=== PATIENT | male | born 1945 | race Caucasian/White ===

== ENCOUNTER → 2020-02-07 | Outpatient (CLI) | payer MEDICARE ==
--- NOTE | 2020-02-07 12:09 | EXE ---
[place] [address] STRESS ECHOCARDIOGRAM Name: JACOB JIMENEZ Room: [facility]#: [id number] Admission: 02/07/20 Attend Phys: Vasiliy Saleh, Discharge: Date of : 49 Date of Service: 02/07/20 1208 Report #: [id number] THIS REPORT FOR: cc: Eduardo Del Valle Bradley Dean DO Blick, David R. MD [facility] ~ APPROVED REPORT Study performed: 02/07/2020 11:12:53 Exam: Stress Echocardiogram Indication: Dyspnea Patient Location: Out-Patient Stress Nurse: Chloé Nicole RN Supervising Physician: Travis Luna MD Status: routine Ht: 5 ft 11 in HR: 75 bpm BP: 115/73 mmHg Rhythm: NSR Medical History Medications: Metoprolol, Rosuvastatin, asa, telmisartan, hlorthalidone Allergies: No known drug allergies Cardiac Risk Factors: Hyperlipidemia, HTN, FHX of CAD, Tobacco History (Former) Procedure The patient underwent an Exercise Stress Test using the Jurgen Protocol. Blood pressure, heart rate, and EKG were monitored. An Echocardiogram was performed by nitriles lab technician in four stages in quad fashion. At peak stress, four selected images were obtained and placed side by side with resting images for comparison. Stress Test Details Stress Test: Exercise stress testing was performed using a Jurgen protocol. HR Resting HR: 75 bpm Max Heart Rate (APMHR): 148 bpm Max HR Achieved: 136 bpm Target HR (85% APMHR): 125 bpm % of APMHR: 91 Recovery HR: 82 bpm HR response to stress: [place] [address] STRESS ECHOCARDIOGRAM Name: JACOB JIMENEZ Room: [facility]#: [id number] Admission: 02/07/20 Attend Phys: Vasiliy Saleh, Discharge: Date of : 49 Date of Service: 02/07/20 1208 Report #: [id number] Resting BP: 115/73 mmHg Max BP: 241/79 mmHg Recovery BP: 158/78 mmHg BP response to stress: Normal blood pressure response to stress. ECG Resting ECG: Sinus Rhythm Stress ECG: Sinus Tachycardia ST Change: Normal Maximum ST Deviation: 0 mm Arrhythmia: None Recovery ECG: Sinus Rhythm Recovery ST Change: Normal Recovery ST Deviation: 0 mm Recovery Arrhythmia: APC Clinical Reason for Termination: Maximal effort Exercise duration: 8 min 14 sec Highest Stage Achieved: Stage 3: 3.4 mph at 14% grade. Exercise capacity: 10.16 METs Pre-Stress Echo The resting Echocardiogram showed normal left ventricular contractility with an estimated Ejection Fraction of about 60-65%. Post-Stress Echo The stress Echocardiogram showed normal left ventricular contractility with an estimated Ejection Fraction of about >70%. Compared to rest, there were no stress-induced wall motion abnormalities. Conclusion Clinical Response: Non-ischemic Exercise Capacity: Average Stress ECG Response: Non-ischemic Stress Echo Images: Non-ischemic low risk stress echo for prediciting future cardiac events Other Information Study Quality: [place] [address] STRESS ECHOCARDIOGRAM Name: JACOB JIMENEZ Room: [facility]#: [id number] Admission: 02/07/20 Attend Phys: Vasiliy Saleh, Discharge: Date of : 49 Date of Service: 02/07/201207 Report #: [id number] <Conclusion> low risk stress echo for prediciting future cardiac events <ELECTRONICALLY SIGNED> By: Travis Luna MD, FACC 02/07/201207 07 07 Travis Luna MD, FACC /INF
== END ==
LOC: M.CRD 02-06 14:45
DX: R06.00 Dyspnea, unspecified (principal); Z79.899 Other long term (current) drug therapy